=== PATIENT | male | born 1985 | race Caucasian/White ===

== ENCOUNTER 2016-09-29 10:10 | Emergency (ER) | payer OTHER ==
[~2016-09-29] VITALS: Ht 188 cm; Wt 118.0 kg
[~2016-09-29 10:10] MED LIST: ALBUTEROL SULF8.5 GM IH; BENADRYL25 MG PO; BENTYL20 MG PO; COUGH DROPS1 EAC1; DAY TIME COLD-177 ML PO; EPIPEN ADU0.3 MG/0.3 IM; FLEXERIL10 MG PO; INDOCIN25 MG PO; LIDODERM 5% P1 PATCH TD; NAPROSYN500 MG PO; NOHOMEMEDS; NYQUIL D COLD295 ML PO; PEPCID20 MG PO; PHENERGAN25 MG PR; PREDNISONE10 M1 PO; PREDNISONE10 MG PO; PROAIR HFA8.5 GM IH; PROMETHAZINE HC25 M1 PO; REGLAN10 MG PO; TRAMADOL HCL50 MG PO; ULTRACET1 TABLET PO; VALIUM5 MG PO; ZOFRAN ODT4 MG PO; ZOFRAN4 MG PO
[2016-09-29] MEDS ORDERED: MOTRIN800 MG PO (12:35)
[2016-09-29] MEDS ORDERED: TYLENOL WITH C1 EACH PO (12:35)
[2016-09-29 12:50] VITALS: BP 133/80
== END 2016-09-29 12:52 | disposition home or self-care (01) ==
LOC: EME 10:10
DX: M25.511 Pain in right shoulder (principal); F17.200 Nicotine dependence, unspecified, uncomplicated
CPT/HCPCS: 73030; 99281; 99284

== ENCOUNTER 2018-01-16 15:09 | Emergency (ER) | payer OTHER ==
[~2018-01-16] VITALS: Ht 185.4 cm; Wt 123.1 kg
[~2018-01-16 15:09] MED LIST changes: +MOTRIN800 MG PO; +TYLENOL WITH C1 EACH PO
[2018-01-16 16:07] LABS: HEMOGLOBIN 15.9 G/DL (12.5-16.6); MCH 31.9 PG (29.0-34.0); MCHC 35.3 G/DL (30.0-36.0); MCV 90.2 FL (86-99); PLATELET COUNT 227 K/uL (156-360); RBC DIS.WIDTH-CV 12.6 % (11.8-14.6); RBC DIS.WIDTH-SD 41.5 % (39-53); RED BLOOD COUNT 4.99 M/uL (4.00-5.50); WHITE BLOOD COUNT 23.2 K/uL (4.1-10.2)
[2018-01-16 16:18] LABS: ALBUMIN 4.6 g/dL (3.2-4.8); CHLORIDE 103 mEq/L (99-109); POTASSIUM 4.2 mEq/L (3.7-5.4); SODIUM 139 mEq/L (136-147)
[2018-01-16 16:20] LABS: GLUCOSE 95 mg/dL (70-99)
[2018-01-16 16:22] LABS: TOTAL BILIRUBIN 0.9 mg/dL (0.0-1.0)
[2018-01-16 16:24] LABS: ALKALINE PHOSPHATASE 93 IU/L (3-129); CREATININE 0.7 mg/dL (0.6-1.3); GFR ESTIMATE (CALCULATED) > 59 mL/min/ (58.99-99999)
[2018-01-16 16:25] LABS: UREA NITROGEN (BUN) 12 mg/dL (9-23)
[2018-01-16 16:26] LABS: AST (GOT) 20 IU/L (2-34)
[2018-01-16 16:27] LABS: ALT (GPT) 33 IU/L (3-49); LIPASE 11 U/L (1.0-51.0)
[2018-01-16] MEDS ORDERED: VENTOLIN HFA18 GM IH (17:38)
[2018-01-16] MEDS ORDERED: FLONASE16 G1 BOTH NARES (17:38)
[2018-01-16] MEDS ORDERED: PREDNISONE20 MG PO (17:38)
[2018-01-16 17:48] VITALS: BP 131/81
== END 2018-01-16 17:51 | disposition home or self-care (01) ==
LOC: EME 15:09
PROVIDERS: Nurse Practitioner Family
DX: J02.0 Streptococcal pharyngitis (principal); B95.0 Streptococcus, group A, as the cause of diseases classified elsewhere; R11.2 Nausea with vomiting, unspecified; R05 Cough; F12.20 Cannabis dependence, uncomplicated; Z87.891 Personal history of nicotine dependence
CPT/HCPCS: 71046; 80053; 83690; 85027; 87502; 87651 90; 99281; 99284; J0561